=== PATIENT | female | born 2000 | race Caucasian/White ===

== ENCOUNTER 2019-03-22 04:55 | Emergency (ER) | payer OTHER ==
[~2019-03-22] VITALS: Ht 159.3 cm; Wt 90.0 kg
[~2019-03-22 04:55] MED LIST: ENSKYCE1 TAB PO; EPIPEN0.3 MG IM; FLUZONE SPLT1 M1 IM; GARDASIL IM; LAMICTAL; LAMICTAL PO; LAMICTAL XR100 MG PO; LAMICTAL100 MG OR; PRILOSEC20 MG; RETIN-A MICR0.04 % TOP; TET/DIP TOX1 ML IM; TRIAMCINOLON0.5 % EX; VOLTAREN - GENE75 MG PO; ZPAK PO; birth control pill PO
[2019-03-22 05:36] LABS: HEMATOCRIT 43.2 % (37.0-47.0); HEMOGLOBIN 14.5 g/dl (12.0-16.0); IMMATURE GRANULOCYTES 0.2 % (0.0-5.0); MEAN CELL VOLUME 87.3 fL CALC (80.0-100.0); MEAN CORPUSCULAR HGB 29.3 pG CALC (26.0-32.0); MEAN CORPUSCULAR HGB CONC 33.6 g/L CALC (32.0-36.0); NEUT# 5.81 thou/uL (2.00-7.15); RED BLOOD COUNT 4.95 mill/uL (4.20-5.60); RED CELL DISTRI WIDTH 12.1 % (11.5-15.5)
[2019-03-22 06:02] LABS: ALBUMIN 4.1 g/dL (3.2-5.0); ALKALINE PHOSPHATASE 70 u/l (38-126); ANION GAP 16 (6-22 (CALC)); BUN 10 mg/dL (8-21); BUN/CREATININE RATIO 14 (12-20 (CALC)); CARBON DIOXIDE 20 mmol/l (22-30); CHLORIDE 106 mmol/l (95-108); CREATININE 0.7 mg/dL (0.5-1.0); GFR > 60 ML/MIN (>=60 (CALC)); GFR FOR AFR.AMER. > 60 ML/MIN (>=60 (CALC)); LIPASE 49 u/l (23-300); POTASSIUM 4.3 mmol/l (3.5-5.1); SGOT/AST 30 u/l (14-36); SODIUM 138 mmol/l (137-146); TOTAL PROTEIN 7.8 g/dL (6.3-8.2)
[2019-03-22 06:14] LABS: MYOGLOBIN 23 ng/mL (0 - 62)
[2019-03-22 06:17] LABS: BILIRUBIN, TOTAL 0.7 mg/dL (0.0-1.4)
[2019-03-22 08:29] VITALS: BP 98/56
[2019-03-23] MEDS ORDERED: PRILOSEC20 MG/CAP PO (11:39)
[2019-03-23] MEDS ORDERED: MELATONIN10 M1 PO (11:39)
== END 2019-03-22 08:29 | disposition short-term general hospital (02) | DRG 313 ==
LOC: ED 04:55
PROVIDERS: Emergency Medicine
DX: R07.9 Chest pain, unspecified (principal); I51.7 Cardiomegaly
CPT/HCPCS: S0164

== ENCOUNTER 2019-03-24 06:48 | Day surgery (SDC) | payer OTHER ==
[~2019-03-24 06:48] MED LIST changes: +MELATONIN10 M1 PO; +PRILOSEC20 MG/CAP PO
[2019-03-24] MEDS ORDERED: LANSOPRAZOLE15 MG PO ×2 (08:17→08:18)
[2019-03-24 08:45] VITALS: BP 112/72
== END 2019-03-24 08:48 | disposition home or self-care (01) | DRG 392 ==
LOC: ORM 06:48
PROVIDERS: ATTEND Surgery
PROC: 0DB48ZX Excision of Esophagogastric Junction, Via Natural or Artificial Opening Endoscopic, Diagnostic (ICD-10-PCS; principal; 2019-03-24)
PROC: 0DB78ZX Excision of Stomach, Pylorus, Via Natural or Artificial Opening Endoscopic, Diagnostic (ICD-10-PCS; 2019-03-24)
DX: K21.0 Gastro-esophageal reflux disease with esophagitis (principal); B00.89 Other herpesviral infection; K29.50 Unspecified chronic gastritis without bleeding; K44.9 Diaphragmatic hernia without obstruction or gangrene; G40.909 Epilepsy, unspecified, not intractable, without status epilepticus

== ENCOUNTER 2019-11-18 07:07 | Day surgery (SDC) | payer OTHER ==
[~2019-11-18 07:07] MED LIST changes: +FLUOXETINE20 MG PO; +LANSOPRAZOLE15 MG PO
[2019-11-18 09:14] VITALS: BP 105/71
--- NOTE | 2019-11-23 14:39 | NUR ---
I SPOKE WITH THE PATIENT'S MOTHER "BEN" REGARDING THE RESULTS. I ADVISED HER THAT PATIENT NEEDS TO TAKE THE LANSOPRAZOLE 20MG PO BID FOR 3 MONTHS AND REPEAT EGD IN 3 MONTHS. I ADVISED I WOULD CALL PRESCRIPTION IN TO [facility]. SHE UNDERSTOOD
== END 2019-11-18 09:35 | disposition home or self-care (01) | DRG 392 ==
LOC: ENDO 07:07 → ORM 07:30 → ENDO 07:30
PROVIDERS: ATTEND Surgery
PROC: 0DB98ZX Excision of Duodenum, Via Natural or Artificial Opening Endoscopic, Diagnostic (ICD-10-PCS; principal; 2019-11-18)
PROC: 0DB48ZX Excision of Esophagogastric Junction, Via Natural or Artificial Opening Endoscopic, Diagnostic (ICD-10-PCS; 2019-11-18)
DX: K21.0 Gastro-esophageal reflux disease with esophagitis (principal); K44.9 Diaphragmatic hernia without obstruction or gangrene; K29.80 Duodenitis without bleeding; G40.909 Epilepsy, unspecified, not intractable, without status epilepticus; Z79.899 Other long term (current) drug therapy; Z11.59 Encounter for screening for other viral diseases

== ENCOUNTER 2020-12-28 21:15 | Emergency (ER) | payer OTHER ==
[~2020-12-28] VITALS: Ht 157.5 cm; Wt 102.0 kg
[~2020-12-28 21:15] MED LIST changes: +AZITHROMYCIN500 MG PO; +DEPO-PROVER150 MG/ML IM; +MEDDOSEPAK PO; +MUPIROCIN2 % EX; +PREVACID15 M1 PO; +PROTONIX20 M1 PO
[2020-12-28] MEDS ORDERED: BACTRIM DS1 TAB PO (21:58)
[2020-12-28] MEDS ORDERED: KEFLEX500 MG PO (21:58)
[2020-12-28 22:35] VITALS: BP 124/79
[2021-04-08] MEDS ORDERED: PREVACID15 M1 PO (11:16)
[2021-04-17] MEDS ORDERED: PREVACID15 M1 PO (16:31)
[2021-04-18] MEDS ORDERED: TOPAMAX25 MG PO (12:52)
== END 2020-12-28 22:35 | disposition home or self-care (01) | DRG 607 ==
LOC: ED 21:15
DX: S90.562A Insect bite (nonvenomous), left ankle, initial encounter (principal); L08.9 Local infection of the skin and subcutaneous tissue, unspecified; L01.00 Impetigo, unspecified; G40.909 Epilepsy, unspecified, not intractable, without status epilepticus; F32.9 Major depressive disorder, single episode, unspecified; W57.XXXA Bitten or stung by nonvenomous insect and other nonvenomous arthropods, initial encounter

== ENCOUNTER 2021-04-11 12:10 | Emergency (ER) | payer OTHER ==
[~2021-04-11] VITALS: Ht 157.5 cm; Wt 85.0 kg
[~2021-04-11 12:10] MED LIST changes: +BACTRIM DS1 TAB PO; +KEFLEX500 MG PO
[2021-04-11 12:44] LABS: IMMATURE GRANULOCYTES 0.5 % (0.0-5.0); MEAN CORPUSCULAR HGB 30.5 pG CALC (26.0-32.0); MEAN CORPUSCULAR HGB CONC 32.6 g/dL CAL (32.0-36.0); NEUT# 4.3 thou/uL (2.00-7.15); RED BLOOD COUNT 5.11 mill/uL (4.20-5.60)
[2021-04-11 12:45] LABS: HEMATOCRIT 47.9 % (37.0-47.0); HEMOGLOBIN 15.6 g/dl (12.0-16.0); MEAN CELL VOLUME 93.7 fL CALC (80.0-100.0)
[2021-04-11 13:01] LABS: URINE BILIRUBIN - DIPSTICK NEGATIVE (NEGATIVE); URINE BLOOD DIPSTICK LARGE (NEGATIVE); URINE COLOR YELLOW; URINE GLUCOSE - DIPSTICK NEGATIVE (NEGATIVE); URINE KETONE NEGATIVE (NEGATIVE); URINE PROTEIN - DIPSTICK TRACE mg/dL (NEG-TRACE); URINE UROBILINOGEN - DIPSTICK 0.2 E.U./dL (0.2)
[2021-04-11 13:03] LABS: URINE LEUK ESTERASE MODERATE (NEGATIVE); URINE NITRITE - DIPSTICK NEGATIVE (Negative)
[2021-04-11 13:04] LABS: URINE BACTERIA FEW hpf; URINE EPITHELIAL CELLS MODERATE EPI/hpf (0-FEW)
[2021-04-11 13:50] LABS: ALBUMIN 4.2 g/dL (3.2-5.0); ALKALINE PHOSPHATASE 92 u/l (38-126); ANION GAP 13 (6-22 (CALC)); BUN 12 mg/dL (7-17); BUN/CREATININE RATIO 15 (12-20 (CALC)); CARBON DIOXIDE 22 mmol/l (22-30); CHLORIDE 110 mmol/l (95-108); CREATININE 0.8 mg/dL (0.5-1.0); GFR > 60 ML/MIN (>=60 (CALC)); GFR FOR AFR.AMER. > 60 ML/MIN (>=60 (CALC)); POTASSIUM 4.3 mmol/l (3.5-5.1); SGOT/AST 36 u/l (14-36); SODIUM 141 mmol/l (137-146); TOTAL PROTEIN 7.7 g/dL (6.3-8.2)
[2021-04-11 14:01] LABS: BILIRUBIN, TOTAL 1.1 mg/dL (0.0-1.4)
[2021-04-11] MEDS ORDERED: NITROFURANTN100 M2 PO (14:26)
[2021-04-11 14:40] VITALS: BP 118/70
[2021-04-17] MEDS ORDERED: PREVACID15 M1 PO (16:31)
== END 2021-04-11 14:45 | disposition home or self-care (01) | DRG 101 ==
LOC: ED 12:10
PROVIDERS: Family Medicine
DX: G40.909 Epilepsy, unspecified, not intractable, without status epilepticus (principal); E66.9 Obesity, unspecified; F32.A Depression, unspecified; Z68.34 Body mass index [BMI] 34.0-34.9, adult

== ENCOUNTER 2022-03-03 17:51 | Emergency (ER) | payer OTHER ==
[~2022-03-03] VITALS: Ht 157.5 cm; Wt 100.0 kg
[2022-03-03] VITALS (13 sets, daily range): BP systolic 95–138; BP diastolic 61–100
[~2022-03-03 17:51] MED LIST changes: +APTIOM800 MG PO; +EPINEPHRIN0.3 MG/0.3 SC; +NITROFURANTN100 M2 PO; +PHYSICIANS1000 MCG/M IM; +TOPAMAX25 MG PO; +TOPAMAX50 M1 PO; +VIMPAT200 MG PO
[2022-03-03 19:10] LABS: HEMATOCRIT 41.6 % (37.0-47.0); HEMOGLOBIN 14.6 g/dl (12.0-16.0); IMMATURE GRANULOCYTES 0.5 % (0.0-5.0); MEAN CELL VOLUME 84.7 fL CALC (80.0-100.0); MEAN CORPUSCULAR HGB 29.7 pG CALC (26.0-32.0); MEAN CORPUSCULAR HGB CONC 35.1 g/dL CAL (32.0-36.0); NEUT# 4.25 thou/uL (2.00-7.15); RED BLOOD COUNT 4.91 mill/uL (4.20-5.60); RED CELL DISTRI WIDTH 12.2 % (11.5-15.5)
[2022-03-03 19:24] LABS: ALBUMIN 4.5 g/dL (3.2-5.0); ALKALINE PHOSPHATASE 107 u/l (38-126); ANION GAP 13 (6-22 (CALC)); BILIRUBIN, TOTAL 1.1 mg/dL (0.0-1.4); BUN 11 mg/dL (7-17); BUN/CREATININE RATIO 12 (12-20 (CALC)); CARBON DIOXIDE 21 mmol/l (22-30); CHLORIDE 109 mmol/l (95-108); CREATININE 0.9 mg/dL (0.5-1.0); GFR FOR AFR.AMER. > 60 ML/MIN (>=60 (CALC)); GFR OTHER RACES > 60 ML/MIN (>=60 (CALC)); POTASSIUM 3.8 mmol/l (3.5-5.1); SGOT/AST 34 u/l (14-36); SODIUM 140 mmol/l (137-146)
== END 2022-03-03 21:31 | disposition home or self-care (01) | DRG 101 ==
LOC: ED 17:51
PROVIDERS: Family Medicine
DX: R56.9 Unspecified convulsions (principal); H53.8 Other visual disturbances

== ENCOUNTER 2022-11-03 18:55 | Emergency (ER) | payer OTHER ==
[~2022-11-03] VITALS: Ht 160 cm; Wt 113.0 kg
[~2022-11-03 18:55] MED LIST changes: +FATHER JOH10 MG/5 ML PO
[2022-11-03 19:50] LABS: URINE BILIRUBIN - DIPSTICK NEGATIVE (NEGATIVE); URINE BLOOD DIPSTICK MODERATE (NEGATIVE); URINE COLOR YELLOW; URINE GLUCOSE - DIPSTICK NEGATIVE (NEGATIVE); URINE KETONE NEGATIVE (NEGATIVE); URINE LEUK ESTERASE TRACE (NEGATIVE); URINE PROTEIN - DIPSTICK NEGATIVE (NEG-TRACE); URINE SPECIFIC GRAVITY >=1.030; URINE UROBILINOGEN - DIPSTICK 0.2 E.U./dL (0.2)
[2022-11-03 19:51] LABS: URINE NITRITE - DIPSTICK NEGATIVE (Negative)
[2022-11-03 20:01] LABS: BASO% 0.3 % (0-3); EOS% 2.5 % (0-8); HEMATOCRIT 44.8 % (37.0-47.0); HEMOGLOBIN 15.1 g/dl (12.0-16.0); IMMATURE GRANULOCYTES 0.3 % (0.0-5.0); LYMPH% 32.5 % (15-41); MEAN CORPUSCULAR HGB 28.7 pG CALC (26.0-32.0); MEAN CORPUSCULAR HGB CONC 33.7 g/dL CAL (32.0-36.0); MONO% 7.6 % (2-13); NEUT# 3.36 thou/uL (2.00-7.15); NEUT% 56.8 % (42-76); RED BLOOD COUNT 5.27 mill/uL (4.20-5.60); RED CELL DISTRI WIDTH 12.1 % (11.5-15.5)
[2022-11-03 20:01] LABS: URINE AMORPH SEDIMENT FEW hpf (NONE-FEW); URINE SQUAMOUS EPITHELIAL CELL MODERATE EPI/hpf (0-FEW)
[2022-11-03 20:13] LABS: ALBUMIN 4.7 g/dL (3.2-5.0); ALKALINE PHOSPHATASE 80 u/l (38-126); BUN 8 mg/dL (7-17); BUN/CREATININE RATIO 8 (12-20 (CALC)); CARBON DIOXIDE 21 mmol/l (22-30); CHLORIDE 108 mmol/l (95-108); CREATININE 0.9 mg/dL (0.5-1.0); GFR FOR AFR.AMER. > 60 ML/MIN (>=60 (CALC)); GFR OTHER RACES > 60 ML/MIN (>=60 (CALC)); SGOT/AST 58 u/l (14-36); SODIUM 140 mmol/l (137-146); TOTAL PROTEIN 8.6 g/dL (6.3-8.2)
[2022-11-03 20:14] LABS: ANION GAP 16 (6-22 (CALC)); BILIRUBIN, TOTAL 1.6 mg/dL (0.02-1.3); POTASSIUM 4.7 mmol/l (3.5-5.1)
[2022-11-03 21:44] VITALS: BP 132/96
== END 2022-11-03 21:50 | disposition home or self-care (01) | DRG 123 ==
LOC: ED 18:55
PROVIDERS: Emergency Medicine
DX: H53.2 Diplopia (principal); G40.909 Epilepsy, unspecified, not intractable, without status epilepticus; E66.9 Obesity, unspecified

== ENCOUNTER 2023-05-25 18:31 | Emergency (ER) | payer BC ==
[~2023-05-25] VITALS: Ht 157.5 cm; Wt 117.0 kg
[~2023-05-25 18:31] MED LIST changes: +B-121000 MC6 PO
[2023-05-25 18:43] VITALS: BP 134/96
[2023-05-25 19:16] LABS: BASO% 0.3 % (0-3); EOS% 1.9 % (0-8); HEMATOCRIT 42.9 % (37.0-47.0); HEMOGLOBIN 14.7 g/dl (12.0-16.0); IMMATURE GRANULOCYTES 0.1 % (0.0-5.0); LYMPH% 40.2 % (15-41); MEAN CELL VOLUME 85.1 fL CALC (80.0-100.0); MEAN CORPUSCULAR HGB 29.2 pG CALC (26.0-32.0); MEAN CORPUSCULAR HGB CONC 34.3 g/dL CAL (32.0-36.0); MONO% 9.6 % (2-13); NEUT# 3.6 thou/uL (2.00-7.15); NEUT% 47.9 % (42-76); RED BLOOD COUNT 5.04 mill/uL (4.20-5.60); RED CELL DISTRI WIDTH 12.1 % (11.5-15.5)
[2023-05-25 19:35] LABS: ALBUMIN 4.6 g/dL (3.2-5.0); ALKALINE PHOSPHATASE 81 u/l (38-126); ANION GAP 13 (6-22 (CALC)); BILIRUBIN, TOTAL 0.6 mg/dL (0.02-1.3); BUN 11 mg/dL (7-17); BUN/CREATININE RATIO 13 (12-20 (CALC)); CARBON DIOXIDE 23 mmol/l (22-30); CHLORIDE 108 mmol/l (95-108); CREATININE 0.8 mg/dL (0.5-1.0); GFR FOR AFR.AMER. > 60 ML/MIN (>=60 (CALC)); GFR OTHER RACES > 60 ML/MIN (>=60 (CALC)); LIPASE 87 u/l (23-300); POTASSIUM 3.7 mmol/l (3.5-5.1); SGOT/AST 33 u/l (14-36); SODIUM 141 mmol/l (137-146); TOTAL PROTEIN 7.9 g/dL (6.3-8.2)
[2023-05-25 20:47] LABS: URINE BILIRUBIN - DIPSTICK Negative (NEGATIVE); URINE BLOOD DIPSTICK Negative (NEGATIVE); URINE GLUCOSE - DIPSTICK Negative (NEGATIVE); URINE KETONE Negative (NEGATIVE); URINE LEUK ESTERASE Trace (NEGATIVE); URINE NITRITE - DIPSTICK Negative (Negative); URINE PH 6.5 (4.5-8.0); URINE PROTEIN - DIPSTICK Negative (NEG-TRACE); URINE UROBILINOGEN - DIPSTICK 0.2 E.U./dL (0.2)
[2023-05-25 20:49] LABS: URINE COLOR Yellow
[2023-05-25] MEDS ORDERED: BACTRIM DS1 TAB PO (21:44)
[2023-05-25 22:57] VITALS: BP 134/96
== END 2023-05-25 22:57 | disposition home or self-care (01) | DRG 690 ==
LOC: ED 18:31
PROVIDERS: Nurse Practitioner
DX: N39.0 Urinary tract infection, site not specified (principal); G40.909 Epilepsy, unspecified, not intractable, without status epilepticus; F32.A Depression, unspecified; E66.9 Obesity, unspecified
CPT/HCPCS: S0164